=== PATIENT | male | born 1945 | race African-American/Black ===

== ENCOUNTER 2018-01-12 16:00 | Inpatient (IN) | payer MEDICARE, OTHER ==
[~2018-01-12] VITALS: Ht 175.3 cm; Wt 58.9 kg
[2018-01-12] MEDS ORDERED: ALBUTEROL SULF 2.5 MG/0.5ML(0.5%) NEB SOLN NEB ONE (16:30)
[2018-01-12] MEDS ORDERED: IPRATROPIUM BROM 0.5 MG/2.5ML INH SOL NEB ONE (16:30)
[2018-01-12] MEDS ORDERED: ETOMIDATE (2MG/ML) 20ML VIAL IV ONE (17:15)
[2018-01-12] MEDS ORDERED: SUCCINYLCHOLINE CHLORIDE 20 MG/ML 10ML VIAL IV ONE (17:15)
[2018-01-12] MEDS ORDERED: LORazepam 2MG/ML-1ML VIAL IV ONE (17:30)
[2018-01-12 18:30] LABS: Basophils # (auto) 0 uL; Eosinophils # (auto) 0 uL; Hemoglobin 8.9 g/dL (13.5-17.5); Neutrophils # (auto) 8.1 uL; Neutrophils % (auto) 88.6 % (37.0-80.0); White Blood Cell 9.1 10^3/uL (4.4-10.8)
[2018-01-12 18:31] LABS: Basophils % (auto) 0.3 % (0.0-2.0); Hematocrit 26.8 % (41.0-53.0); Lymphocytes # (auto) 0.4 uL; Lymphocytes % (auto) 4.1 % (10.0-50.0); Mean Corpuscular Hemoglobin 27.1 pg (28.0-32.0); Mean Corpuscular Hgb Conc. 33.2 g/dL (32.0-36.0); Mean Corpuscular Volume 81.7 fL (80.0-100.0); Monocytes # (auto) 0.6 uL; Platelet Count (auto) 262 10^3/uL (140-450); Red Blood Cells 3.28 10^6/uL (4.5-5.90); Red Cell Distribution Width 14.4 % (11.8-14.3)
[2018-01-12 18:37] LABS: Albumin 2.6 g/dL (3.4-5.0); BUN/Creatinine Ratio 15.4; Calcium 8.1 mg/dL (8.5-10.1); Potassium 4.3 mmol/L (3.5-5.1)
[2018-01-12 18:42] LABS: Bilirubin, Total 0.4 mg/dL (0.2-1.0); Total Protein 6.5 g/dL (6.4-8.2)
[2018-01-12 18:58] LABS: INR 1.05 (0.9-1.15); Partial Thromboplastin Time 28.9 sec (22.64-33.71); Prothrombin Time 11.5 sec (9.37-12.3)
[2018-01-12] MEDS ORDERED: cloNIDine HCL 0.1 MG TAB PO PRN (19:45)
[2018-01-12] MEDS ORDERED: hydrOXYzine 25 MG TAB or CAP PO PRN (19:45)
[2018-01-12] MEDS ORDERED: VANCOMYCIN PER PHARMACY 0 MG IV SCH (19:45)
[2018-01-12] MEDS ORDERED: HYDROcodone-ACET 5/325MG TAB PO PRN (19:45)
[2018-01-12] MEDS ORDERED: FUROSEMIDE 40 MG/4 ML VIAL IV ONE (19:45)
[2018-01-12] MEDS ORDERED: cefTRIAXone 1GM/10ml IVPUSH 10 ML IV ONE (19:45)
[2018-01-12] MEDS ORDERED: DEXTROSE (50%) 50ML SYRG IV PRN (20:00)
[2018-01-12] MEDS ORDERED: ALUM & MAG HYDROX-SIMETH LIQ(MAALOX) 30 ML PO ONE (20:00)
[2018-01-12] MEDS ORDERED: NITROGLYCERIN 0.4 MG SL TAB SL PRN ×2 (20:00)
[2018-01-12] MEDS ORDERED: ACETAMINOPHEN 325 MG TAB PO PRN (20:00)
[2018-01-12] MEDS ORDERED: MORPHINE SULFATE 4 MG/ML SYR/VIAL IV PRN ×2 (20:00)
[2018-01-12] MEDS ORDERED: ZOLPIDEM TARTRATE 5 MG TAB PO PRN (20:00)
[2018-01-12] MEDS ORDERED: LORazepam 0.5 MG TAB PO PRN (20:00)
[2018-01-12] MEDS ORDERED: ONDANSETRON HCL 4 MG/2 ML VIAL IV PRN (20:00)
[2018-01-12] MEDS: ENOXAPARIN SOD 80 MG/0.8ML SYRINGE SC SCH (20:20)
[2018-01-12] MEDS ORDERED: VANCOMYCIN 1GM/250ML 250 ML IV SCH (21:00)
[2018-01-12] MEDS: ACCU-CHEK COMFORT CURVE STRIP VI SCH (22:00)
[2018-01-12] MEDS: cloNIDine HCL 0.1 MG TAB PO SCH (22:00)
[2018-01-12] MEDS: InsuLIN REG 1unit/0.01ml Soln (100units/ml) SC SCH (22:00)
[2018-01-12] MEDS: CARVEDILOL 3.125 MG TAB PO SCH (22:00)
[2018-01-12] MEDS: ATORVASTATIN 20 MG TAB PO SCH (22:16)
[2018-01-12] MEDS: SODIUM CHLOR 0.9% PF (SALINE LOCK) 10ML VIAL IV SCH (22:16)
[2018-01-12] MEDS: ENALAPRIL MALEATE 10 MG TAB PO SCH (22:16)
[2018-01-12] MEDS: POTASSIUM CHL 10 Meq TABLET PO SCH (22:16)
[2018-01-12] MEDS: PARoxetine 20 MG TAB PO SCH (22:16)
[2018-01-12] MEDS: GABAPENTIN 300 MG CAP PO SCH (22:16)
[2018-01-12] MEDS: QUEtiapine FUMARATE 100 MG TAB PO SCH (22:16)
[2018-01-13] VITALS (9 sets, daily range): BP systolic 103–135; BP diastolic 63–89
[2018-01-13 05:30] LABS: Basophils # (auto) 0 uL; Eosinophils # (auto) 0 uL; Eosinophils % (auto) 0.1 % (0.0-7.0); Hemoglobin 8.4 g/dL (13.5-17.5); Lymphocytes # (auto) 0.7 uL; Mean Corpuscular Hemoglobin 26.8 pg (28.0-32.0)
[2018-01-13 05:31] LABS: Basophils % (auto) 0.2 % (0.0-2.0); Hematocrit 25.5 % (41.0-53.0); Lymphocytes % (auto) 6.3 % (10.0-50.0); Mean Corpuscular Volume 81.2 fL (80.0-100.0); Monocytes # (auto) 0.8 uL; Monocytes % (auto) 6.8 % (0.0-12.0); Neutrophils # (auto) 9.6 uL; Neutrophils % (auto) 86.6 % (37.0-80.0); Nucleated Red Blood Cells % 0.1 %; Platelet Count (auto) 241 10^3/uL (140-450); Red Blood Cells 3.14 10^6/uL (4.5-5.90); Red Cell Distribution Width 14.2 % (11.8-14.3); White Blood Cell 11.1 10^3/uL (4.4-10.8)
[2018-01-13 05:49] LABS: Albumin 2.4 g/dL (3.4-5.0); BUN/Creatinine Ratio 14.7; Bilirubin, Total 0.3 mg/dL (0.2-1.0); Calcium 7.7 mg/dL (8.5-10.1); Magnesium 1.8 mg/dL (1.6-2.6); Total Protein 6.2 g/dL (6.4-8.2)
[2018-01-13] MEDS ORDERED: ACETAMINOPHEN 500 MG TAB PO ONE (06:00)
[2018-01-13] MEDS: SODIUM CHLOR 0.9% PF (SALINE LOCK) 10ML VIAL IV SCH ×3 (06:12→22:02)
[2018-01-13] MEDS: FUROSEMIDE 40 MG/4 ML VIAL IV SCH ×2 (06:12→18:25)
[2018-01-13] MEDS: IPRATROPIUM BROM 0.5 MG/2.5ML INH SOL NEB SCH ×3 (06:15→18:20)
[2018-01-13] MEDS: ALBUTEROL SULF 2.5 MG/0.5ML(0.5%) NEB SOLN NEB SCH ×3 (06:15→18:20)
[2018-01-13] MEDS: ACCU-CHEK COMFORT CURVE STRIP VI SCH ×4 (06:30→22:07)
[2018-01-13] MEDS: INSULIN NPH Isophane (HUMAN) 1unit/0.01ml Susp(100units/ml) SC SCH ×2 (06:31→18:25)
[2018-01-13] MEDS: InsuLIN REG 1unit/0.01ml Soln (100units/ml) SC SCH ×4 (06:32→22:00)
[2018-01-13] MEDS: Boost Glucose Control 8 Ounces PO SCH ×3 (08:52→18:23)
[2018-01-13] MEDS: ENOXAPARIN SOD 80 MG/0.8ML SYRINGE SC SCH ×2 (09:05→22:02)
[2018-01-13] MEDS: cefTRIAXone 1GM/10ml IVPUSH 10 ML IV SCH (09:05)
[2018-01-13] MEDS ORDERED: amLODIPine BESYLATE 5 MG TAB PO SCH (10:00)
[2018-01-13] MEDS ORDERED: AZITHROMYCIN 500MG/ 250ML 250 ML IV ONE (11:15)
[2018-01-13] MEDS: cloNIDine HCL 0.1 MG TAB PO SCH ×2 (12:00→22:00)
[2018-01-13] MEDS: CLOPIDOGREL BISULFATE 75 MG TAB PO SCH (12:00)
[2018-01-13] MEDS: ASPirin 81 mg TAB PO SCH (12:00)
[2018-01-13] MEDS: POTASSIUM CHL 10 Meq TABLET PO SCH ×2 (12:00→22:07)
[2018-01-13] MEDS: GABAPENTIN 300 MG CAP PO SCH ×2 (12:00→22:07)
[2018-01-13] MEDS: DOCUSATE SOD 100 MG CAP PO SCH (12:00)
[2018-01-13] MEDS: CARVEDILOL 3.125 MG TAB PO SCH ×2 (12:00→22:06)
[2018-01-13] MEDS: PANTOPRAZOLE 40 MG TAB PO SCH (12:00)
[2018-01-13] MEDS: ENALAPRIL MALEATE 10 MG TAB PO SCH ×2 (12:00→22:00)
[2018-01-13 12:37] LABS: Urine Bacteria NONE SEEN /hpf (None Seen); Urine Blood Negative /uL (Negative); Urine Specific Gravity 1.008 (1.001-1.035); Urine WBC <1 /hpf (0 - 3)
[2018-01-13] MEDS ORDERED: IPRATROPIUM BROM 0.5 MG/2.5ML INH SOL NEB PRN (18:15)
[2018-01-13] MEDS ORDERED: ALBUTEROL SULF 2.5 MG/0.5ML(0.5%) NEB SOLN NEB PRN (18:15)
[2018-01-13] MEDS: ATORVASTATIN 20 MG TAB PO SCH (22:07)
[2018-01-13] MEDS: PARoxetine 20 MG TAB PO SCH (22:08)
[2018-01-13] MEDS: QUEtiapine FUMARATE 100 MG TAB PO SCH (22:08)
[2018-01-14] VITALS (9 sets, daily range): BP systolic 85–126; BP diastolic 56–73
[2018-01-14] MEDS: IPRATROPIUM BROM 0.5 MG/2.5ML INH SOL NEB SCH ×4 (00:13→17:59)
[2018-01-14] MEDS: ALBUTEROL SULF 2.5 MG/0.5ML(0.5%) NEB SOLN NEB SCH ×4 (00:13→17:59)
[2018-01-14 05:47] LABS: Eosinophils # (auto) 0 uL; Hemoglobin 8.5 g/dL (13.5-17.5)
[2018-01-14 05:50] LABS: Basophils # (auto) 0 uL; Lymphocytes # (auto) 0.7 uL; Lymphocytes % (auto) 4.7 % (10.0-50.0); Mean Corpuscular Hemoglobin 26.8 pg (28.0-32.0); Mean Corpuscular Hgb Conc. 32.7 g/dL (32.0-36.0); Mean Corpuscular Volume 82.1 fL (80.0-100.0); Monocytes % (auto) 6.7 % (0.0-12.0); Neutrophils # (auto) 12.6 uL; Neutrophils % (auto) 88.6 % (37.0-80.0); Platelet Count (auto) 231 10^3/uL (140-450); Red Blood Cells 3.17 10^6/uL (4.5-5.90); Red Cell Distribution Width 14.1 % (11.8-14.3); White Blood Cell 14.2 10^3/uL (4.4-10.8)
[2018-01-14 06:05] LABS: BUN/Creatinine Ratio 21.3; Calcium 8.1 mg/dL (8.5-10.1); Potassium 4.3 mmol/L (3.5-5.1)
[2018-01-14] MEDS: ACCU-CHEK COMFORT CURVE STRIP VI SCH ×4 (06:27→22:20)
[2018-01-14] MEDS: InsuLIN REG 1unit/0.01ml Soln (100units/ml) SC SCH ×4 (06:27→22:20)
[2018-01-14] MEDS: INSULIN NPH Isophane (HUMAN) 1unit/0.01ml Susp(100units/ml) SC SCH ×2 (06:27→18:00)
[2018-01-14] MEDS: SODIUM CHLOR 0.9% PF (SALINE LOCK) 10ML VIAL IV SCH ×3 (06:28→22:20)
[2018-01-14] MEDS: FUROSEMIDE 40 MG/4 ML VIAL IV SCH ×2 (06:47→18:11)
[2018-01-14] MEDS ORDERED: BUMETANIDE (0.25 MG/ML) INJ 10ML IV ONE (07:45)
[2018-01-14] MEDS: ENOXAPARIN SOD 80 MG/0.8ML SYRINGE SC SCH (08:31)
[2018-01-14] MEDS: Boost Glucose Control 8 Ounces PO SCH ×3 (08:31→18:12)
[2018-01-14] MEDS: GABAPENTIN 300 MG CAP PO SCH ×2 (09:55→22:20)
[2018-01-14] MEDS: ASPirin 81 mg TAB PO SCH (09:55)
[2018-01-14] MEDS: DOCUSATE SOD 100 MG CAP PO SCH (09:55)
[2018-01-14] MEDS: POTASSIUM CHL 10 Meq TABLET PO SCH ×2 (09:55→22:20)
[2018-01-14] MEDS: CLOPIDOGREL BISULFATE 75 MG TAB PO SCH (09:55)
[2018-01-14] MEDS: PANTOPRAZOLE 40 MG TAB PO SCH (09:55)
[2018-01-14] MEDS: AZITHROMYCIN 500MG/ 250ML 250 ML IV SCH (09:56)
[2018-01-14] MEDS: cefTRIAXone 1GM/10ml IVPUSH 10 ML IV SCH (09:56)
[2018-01-14] MEDS: CARVEDILOL 3.125 MG TAB PO SCH ×2 (10:00→22:00)
[2018-01-14] MEDS: cloNIDine HCL 0.1 MG TAB PO SCH ×2 (10:00→22:00)
[2018-01-14] MEDS: HEPARIN SODIUM (PORCINE) 5000 UNITS/ML 1ML VIAL SC SCH ×2 (14:00→22:20)
[2018-01-14] MEDS: methylPREDNISolone SOD SUCC 125 MG/2 ML VL IV SCH ×2 (14:25→22:20)
[2018-01-14] MEDS: PARoxetine 20 MG TAB PO SCH (22:20)
[2018-01-14] MEDS: ATORVASTATIN 20 MG TAB PO SCH (22:20)
[2018-01-14] MEDS: QUEtiapine FUMARATE 100 MG TAB PO SCH (22:20)
[2018-01-15] VITALS (7 sets, daily range): BP systolic 100–135; BP diastolic 61–76
[2018-01-15] MEDS: ALBUTEROL SULF 2.5 MG/0.5ML(0.5%) NEB SOLN NEB SCH ×4 (00:03→18:42)
[2018-01-15] MEDS: IPRATROPIUM BROM 0.5 MG/2.5ML INH SOL NEB SCH ×4 (00:03→18:43)
[2018-01-15 06:00] LABS: Basophils # (auto) 0 uL; Basophils % (auto) 0.2 % (0.0-2.0); Eosinophils # (auto) 0 uL; Lymphocytes # (auto) 0.2 uL; Mean Corpuscular Hemoglobin 26.7 pg (28.0-32.0); Monocytes # (auto) 0.6 uL; Neutrophils # (auto) 10.8 uL; White Blood Cell 11.6 10^3/uL (4.4-10.8)
[2018-01-15] MEDS: FUROSEMIDE 40 MG/4 ML VIAL IV SCH ×2 (06:00→17:55)
[2018-01-15] MEDS ORDERED: BUMETANIDE (0.25 MG/ML) INJ 10ML IV ONE (06:00)
[2018-01-15 06:02] LABS: BUN/Creatinine Ratio 24.6; Calcium 7.4 mg/dL (8.5-10.1); Potassium 4.3 mmol/L (3.5-5.1)
[2018-01-15 06:03] LABS: Hematocrit 24.3 % (41.0-53.0); Lymphocytes % (auto) 1.7 % (10.0-50.0); Mean Corpuscular Volume 80.9 fL (80.0-100.0); Monocytes % (auto) 5.1 % (0.0-12.0); Platelet Count (auto) 233 10^3/uL (140-450); Red Blood Cells 3.01 10^6/uL (4.5-5.90); Red Cell Distribution Width 14.1 % (11.8-14.3)
[2018-01-15] MEDS: methylPREDNISolone SOD SUCC 125 MG/2 ML VL IV SCH (06:05)
[2018-01-15] MEDS: SODIUM CHLOR 0.9% PF (SALINE LOCK) 10ML VIAL IV SCH ×3 (06:05→22:02)
[2018-01-15] MEDS: INSULIN NPH Isophane (HUMAN) 1unit/0.01ml Susp(100units/ml) SC SCH ×2 (07:00→18:14)
[2018-01-15] MEDS: InsuLIN REG 1unit/0.01ml Soln (100units/ml) SC SCH ×4 (07:00→22:22)
[2018-01-15] MEDS: HEPARIN SODIUM (PORCINE) 5000 UNITS/ML 1ML VIAL SC SCH ×3 (07:00→22:04)
[2018-01-15] MEDS: ACCU-CHEK COMFORT CURVE STRIP VI SCH ×4 (07:00→22:04)
[2018-01-15] MEDS: Boost Glucose Control 8 Ounces PO SCH ×3 (08:00→18:00)
[2018-01-15] MEDS: cefTRIAXone 1GM/10ml IVPUSH 10 ML IV SCH (09:46)
[2018-01-15] MEDS: CLOPIDOGREL BISULFATE 75 MG TAB PO SCH (09:48)
[2018-01-15] MEDS: ASPirin 81 mg TAB PO SCH (09:48)
[2018-01-15] MEDS: DOCUSATE SOD 100 MG CAP PO SCH (09:48)
[2018-01-15] MEDS: GABAPENTIN 300 MG CAP PO SCH ×2 (09:48→22:03)
[2018-01-15] MEDS: POTASSIUM CHL 10 Meq TABLET PO SCH ×2 (09:48→22:03)
[2018-01-15] MEDS: PANTOPRAZOLE 40 MG TAB PO SCH (09:48)
[2018-01-15] MEDS: AZITHROMYCIN 500MG/ 250ML 250 ML IV SCH (09:53)
[2018-01-15] MEDS: CARVEDILOL 3.125 MG TAB PO SCH ×2 (09:54→22:03)
[2018-01-15] MEDS: cloNIDine HCL 0.1 MG TAB PO SCH ×2 (09:54→22:02)
[2018-01-15] MEDS ORDERED: HEPARIN SODIUM (PORCINE) 5000 UNITS/ML 1ML VIAL ONE ×2 (14:11)
[2018-01-15] MEDS ORDERED: methylPREDNISolone SOD SUCC 125 MG/2 ML VL IV SCH (22:00)
[2018-01-15] MEDS: methylPREDNISolone SOD SUCC 40 MG/ML VL IV SCH (22:02)
[2018-01-15] MEDS: ATORVASTATIN 20 MG TAB PO SCH (22:03)
[2018-01-15] MEDS: QUEtiapine FUMARATE 100 MG TAB PO SCH (22:03)
[2018-01-15] MEDS: PARoxetine 20 MG TAB PO SCH (22:03)
[2018-01-16] VITALS (14 sets, daily range): BP systolic 106–136; BP diastolic 57–79
[2018-01-16] MEDS: IPRATROPIUM BROM 0.5 MG/2.5ML INH SOL NEB SCH ×4 (00:36→19:55)
[2018-01-16] MEDS: ALBUTEROL SULF 2.5 MG/0.5ML(0.5%) NEB SOLN NEB SCH ×4 (00:36→19:55)
[2018-01-16 05:20] LABS: Basophils # (auto) 0 uL; Eosinophils # (auto) 0 uL; Hematocrit 23.2 % (41.0-53.0); Lymphocytes # (auto) 0.2 uL; Platelet Count (auto) 231 10^3/uL (140-450); Red Blood Cells 2.88 10^6/uL (4.5-5.90)
[2018-01-16 05:22] LABS: Basophils % (auto) 0.2 % (0.0-2.0); Hemoglobin 7.9 g/dL (13.5-17.5); Mean Corpuscular Hemoglobin 27.3 pg (28.0-32.0); Mean Corpuscular Volume 80.4 fL (80.0-100.0); Monocytes # (auto) 0.5 uL; Monocytes % (auto) 4.8 % (0.0-12.0); Neutrophils # (auto) 9.9 uL; Nucleated Red Blood Cells % 0.1 %; Red Cell Distribution Width 14.1 % (11.8-14.3); White Blood Cell 10.6 10^3/uL (4.4-10.8)
[2018-01-16 05:36] LABS: BUN/Creatinine Ratio 30.5; Calcium 7.1 mg/dL (8.5-10.1); Potassium 3.6 mmol/L (3.5-5.1)
[2018-01-16] MEDS: FUROSEMIDE 40 MG/4 ML VIAL IV SCH (06:00)
[2018-01-16] MEDS: SODIUM CHLOR 0.9% PF (SALINE LOCK) 10ML VIAL IV SCH ×3 (06:27→21:41)
[2018-01-16] MEDS: HEPARIN SODIUM (PORCINE) 5000 UNITS/ML 1ML VIAL SC SCH ×3 (06:27→21:50)
[2018-01-16] MEDS: ACCU-CHEK COMFORT CURVE STRIP VI SCH ×4 (06:40→21:42)
[2018-01-16] MEDS: InsuLIN REG 1unit/0.01ml Soln (100units/ml) SC SCH ×4 (06:40→21:43)
[2018-01-16] MEDS: INSULIN NPH Isophane (HUMAN) 1unit/0.01ml Susp(100units/ml) SC SCH ×2 (06:42→18:27)
[2018-01-16] MEDS: Boost Glucose Control 8 Ounces PO SCH ×3 (08:00→18:21)
[2018-01-16] MEDS: methylPREDNISolone SOD SUCC 40 MG/ML VL IV SCH ×2 (10:56→21:41)
[2018-01-16] MEDS: cefTRIAXone 1GM/10ml IVPUSH 10 ML IV SCH (10:59)
[2018-01-16] MEDS: cloNIDine HCL 0.1 MG TAB PO SCH ×2 (10:59→21:33)
[2018-01-16] MEDS: ASPirin 81 mg TAB PO SCH (10:59)
[2018-01-16] MEDS: DOCUSATE SOD 100 MG CAP PO SCH (11:08)
[2018-01-16] MEDS: GABAPENTIN 300 MG CAP PO SCH ×2 (11:08→21:42)
[2018-01-16] MEDS: AZITHROMYCIN 500MG/ 250ML 250 ML IV SCH (11:08)
[2018-01-16] MEDS: CARVEDILOL 3.125 MG TAB PO SCH ×2 (11:09→21:33)
[2018-01-16] MEDS: CLOPIDOGREL BISULFATE 75 MG TAB PO SCH (11:10)
[2018-01-16] MEDS: PANTOPRAZOLE 40 MG TAB PO SCH (11:10)
[2018-01-16] MEDS: POTASSIUM CHL 10 Meq TABLET PO SCH ×2 (11:38→21:42)
[2018-01-16] MEDS ORDERED: FUROSEMIDE 40 MG/4 ML VIAL IV ONE (16:00)
[2018-01-16 16:35] LABS: % Iron Saturation 10.3 % (20-55)
[2018-01-16] MEDS: ALBUMIN 25% 50 ML IV SCH (21:33)
[2018-01-16] MEDS: PARoxetine 20 MG TAB PO SCH (21:42)
[2018-01-16] MEDS: ATORVASTATIN 20 MG TAB PO SCH (21:42)
[2018-01-16] MEDS: QUEtiapine FUMARATE 100 MG TAB PO SCH (21:42)
[2018-01-17] VITALS (14 sets, daily range): BP systolic 134–151; BP diastolic 70–90
[2018-01-17] MEDS: IPRATROPIUM BROM 0.5 MG/2.5ML INH SOL NEB SCH ×4 (00:39→18:47)
[2018-01-17] MEDS: ALBUTEROL SULF 2.5 MG/0.5ML(0.5%) NEB SOLN NEB SCH ×4 (00:39→18:47)
[2018-01-17] MEDS: ALBUMIN 25% 50 ML IV SCH ×2 (00:55→09:03)
[2018-01-17 05:25] LABS: Basophils # (auto) 0 uL; Basophils % (auto) 0.2 % (0.0-2.0); Eosinophils # (auto) 0 uL; Hematocrit 26.5 % (41.0-53.0); Hemoglobin 8.9 g/dL (13.5-17.5); Lymphocytes # (auto) 0.2 uL; Mean Corpuscular Hemoglobin 27.4 pg (28.0-32.0); Mean Corpuscular Hgb Conc. 33.5 g/dL (32.0-36.0); Mean Corpuscular Volume 81.9 fL (80.0-100.0); Monocytes # (auto) 0.4 uL; Monocytes % (auto) 4.7 % (0.0-12.0); Neutrophils # (auto) 7.4 uL; Neutrophils % (auto) 93.1 % (37.0-80.0); Nucleated Red Blood Cells % 0.2 %; Platelet Count (auto) 235 10^3/uL (140-450); Red Blood Cells 3.24 10^6/uL (4.5-5.90)
[2018-01-17] MEDS: ACCU-CHEK COMFORT CURVE STRIP VI SCH ×4 (05:45→22:17)
[2018-01-17] MEDS: SODIUM CHLOR 0.9% PF (SALINE LOCK) 10ML VIAL IV SCH ×3 (05:45→22:17)
[2018-01-17] MEDS: INSULIN NPH Isophane (HUMAN) 1unit/0.01ml Susp(100units/ml) SC SCH (05:45)
[2018-01-17] MEDS: InsuLIN REG 1unit/0.01ml Soln (100units/ml) SC SCH ×4 (05:45→22:15)
[2018-01-17] MEDS: HEPARIN SODIUM (PORCINE) 5000 UNITS/ML 1ML VIAL SC SCH ×3 (05:46→21:12)
[2018-01-17 05:47] LABS: Albumin 2.3 g/dL (3.4-5.0); BUN/Creatinine Ratio 35.8; Bilirubin, Total 0.2 mg/dL (0.2-1.0); Total Protein 6.7 g/dL (6.4-8.2)
[2018-01-17] MEDS ORDERED: FUROSEMIDE 40 MG/4 ML VIAL IV SCH (06:00)
[2018-01-17] MEDS: Boost Glucose Control 8 Ounces PO SCH ×3 (08:00→18:00)
[2018-01-17] MEDS: cefTRIAXone 1GM/10ml IVPUSH 10 ML IV SCH (09:00)
[2018-01-17] MEDS: DOCUSATE SOD 100 MG CAP PO SCH (11:06)
[2018-01-17] MEDS: CLOPIDOGREL BISULFATE 75 MG TAB PO SCH (11:06)
[2018-01-17] MEDS: cloNIDine HCL 0.1 MG TAB PO SCH ×2 (11:09→21:06)
[2018-01-17] MEDS: GABAPENTIN 300 MG CAP PO SCH ×2 (11:09→21:05)
[2018-01-17] MEDS: POTASSIUM CHL 10 Meq TABLET PO SCH ×2 (11:10→21:05)
[2018-01-17] MEDS: PANTOPRAZOLE 40 MG TAB PO SCH (11:11)
[2018-01-17] MEDS: CARVEDILOL 3.125 MG TAB PO SCH ×2 (11:11→21:08)
[2018-01-17] MEDS: ASPirin 81 mg TAB PO SCH (11:12)
[2018-01-17] MEDS: methylPREDNISolone SOD SUCC 40 MG/ML VL IV SCH ×2 (11:12→21:13)
[2018-01-17] MEDS: AZITHROMYCIN 500MG/ 250ML 250 ML IV SCH (11:13)
[2018-01-17] MEDS ORDERED: InsuLIN REG 1unit/0.01ml Soln (100units/ml) SC ONE (12:45)
[2018-01-17] MEDS ORDERED: DEXTROSE (50%) 50ML SYRG IV PRN (12:45)
[2018-01-17] MEDS: ALBUMIN 25% 100 ML IV SCH ×2 (14:36→15:12)
[2018-01-17] MEDS ORDERED: ALBUMIN 25% 100 ML IV SCH (17:00)
[2018-01-17] MEDS: ATORVASTATIN 20 MG TAB PO SCH (21:08)
[2018-01-17] MEDS: QUEtiapine FUMARATE 100 MG TAB PO SCH (21:11)
[2018-01-17] MEDS: PARoxetine 20 MG TAB PO SCH (21:11)
[2018-01-17] MEDS: INSULIN LANTUS (GLARGINE) 1 /0.01ml (100units/ml) SC SCH (22:16)
[2018-01-18] VITALS (11 sets, daily range): BP systolic 139–162; BP diastolic 76–92
[2018-01-18] MEDS: IPRATROPIUM BROM 0.5 MG/2.5ML INH SOL NEB SCH ×4 (00:49→19:16)
[2018-01-18] MEDS: ALBUTEROL SULF 2.5 MG/0.5ML(0.5%) NEB SOLN NEB SCH ×4 (00:49→19:16)
[2018-01-18] MEDS: InsuLIN REG 1unit/0.01ml Soln (100units/ml) SC SCH ×4 (05:47→21:19)
[2018-01-18] MEDS: HEPARIN SODIUM (PORCINE) 5000 UNITS/ML 1ML VIAL SC SCH ×3 (05:57→21:19)
[2018-01-18 05:59] LABS: Basophils # (auto) 0 uL; Basophils % (auto) 0.1 % (0.0-2.0); Eosinophils # (auto) 0 uL; Hematocrit 27.7 % (41.0-53.0); Hemoglobin 9.3 g/dL (13.5-17.5); Lymphocytes # (auto) 0.1 uL; Lymphocytes % (auto) 1.8 % (10.0-50.0); Mean Corpuscular Hemoglobin 27.2 pg (28.0-32.0); Mean Corpuscular Hgb Conc. 33.4 g/dL (32.0-36.0); Mean Corpuscular Volume 81.5 fL (80.0-100.0); Monocytes # (auto) 0.5 uL; Monocytes % (auto) 5.6 % (0.0-12.0); Neutrophils # (auto) 7.7 uL; Neutrophils % (auto) 92.5 % (37.0-80.0); Nucleated Red Blood Cells % 0.2 %; Platelet Count (auto) 283 10^3/uL (140-450); Red Blood Cells 3.41 10^6/uL (4.5-5.90); Red Cell Distribution Width 14.7 % (11.8-14.3); White Blood Cell 8.4 10^3/uL (4.4-10.8)
[2018-01-18] MEDS ORDERED: FUROSEMIDE 40 MG/4 ML VIAL IV SCH ×2 (06:00→10:00)
[2018-01-18] MEDS: SODIUM CHLOR 0.9% PF (SALINE LOCK) 10ML VIAL IV SCH ×3 (06:00→21:15)
[2018-01-18 06:13] LABS: INR 1.16 (0.9-1.15); Partial Thromboplastin Time 29.5 sec (22.64-33.71); Prothrombin Time 12.7 sec (9.37-12.3)
[2018-01-18 06:24] LABS: Albumin 2.8 g/dL (3.4-5.0); Calcium 7.6 mg/dL (8.5-10.1); Magnesium 2.9 mg/dL (1.6-2.6); Potassium 4.6 mmol/L (3.5-5.1)
[2018-01-18 06:27] LABS: BUN/Creatinine Ratio 43.3; Bilirubin, Total 0.3 mg/dL (0.2-1.0); Total Protein 6.9 g/dL (6.4-8.2)
[2018-01-18] MEDS: ACCU-CHEK COMFORT CURVE STRIP VI SCH ×4 (07:00→21:18)
[2018-01-18] MEDS: Boost Glucose Control 8 Ounces PO SCH ×3 (08:00→18:00)
[2018-01-18] MEDS: methylPREDNISolone SOD SUCC 40 MG/ML VL IV SCH ×2 (09:49→21:15)
[2018-01-18] MEDS: AZITHROMYCIN 500MG/ 250ML 250 ML IV SCH (09:49)
[2018-01-18] MEDS: cefTRIAXone 1GM/10ml IVPUSH 10 ML IV SCH (09:49)
[2018-01-18] MEDS: DOCUSATE SOD 100 MG CAP PO SCH (09:50)
[2018-01-18] MEDS: GABAPENTIN 300 MG CAP PO SCH ×2 (09:50→21:16)
[2018-01-18] MEDS: CARVEDILOL 3.125 MG TAB PO SCH ×2 (09:51→21:16)
[2018-01-18] MEDS: PANTOPRAZOLE 40 MG TAB PO SCH (09:51)
[2018-01-18] MEDS: CLOPIDOGREL BISULFATE 75 MG TAB PO SCH (09:51)
[2018-01-18] MEDS: ASPirin 81 mg TAB PO SCH (09:51)
[2018-01-18] MEDS: POTASSIUM CHL 10 Meq TABLET PO SCH ×2 (09:52→21:16)
[2018-01-18] MEDS: cloNIDine HCL 0.1 MG TAB PO SCH ×2 (09:52→21:17)
[2018-01-18] MEDS ORDERED: LIDOCAINE 2% (LOCAL ANESTH.) PF 5ml SDV ONE (10:52)
[2018-01-18] MEDS: PARoxetine 20 MG TAB PO SCH (21:15)
[2018-01-18] MEDS: ATORVASTATIN 20 MG TAB PO SCH (21:15)
[2018-01-18] MEDS: QUEtiapine FUMARATE 100 MG TAB PO SCH (21:18)
[2018-01-18] MEDS: INSULIN LANTUS (GLARGINE) 1 /0.01ml (100units/ml) SC SCH (21:18)
[2018-01-19] VITALS (7 sets, daily range): BP systolic 141–156; BP diastolic 78–96
[2018-01-19] MEDS: IPRATROPIUM BROM 0.5 MG/2.5ML INH SOL NEB SCH ×4 (00:55→20:09)
[2018-01-19] MEDS: ALBUTEROL SULF 2.5 MG/0.5ML(0.5%) NEB SOLN NEB SCH ×4 (00:55→20:09)
[2018-01-19 06:15] LABS: Potassium 5.2 mmol/L (3.5-5.1)
[2018-01-19 06:22] LABS: Calcium 7.8 mg/dL (8.5-10.1)
[2018-01-19] MEDS: ACCU-CHEK COMFORT CURVE STRIP VI SCH ×4 (06:39→22:12)
[2018-01-19] MEDS: SODIUM CHLOR 0.9% PF (SALINE LOCK) 10ML VIAL IV SCH ×3 (06:40→22:13)
[2018-01-19] MEDS: InsuLIN REG 1unit/0.01ml Soln (100units/ml) SC SCH ×4 (06:42→22:01)
[2018-01-19] MEDS: HEPARIN SODIUM (PORCINE) 5000 UNITS/ML 1ML VIAL SC SCH ×3 (06:45→21:56)
[2018-01-19] MEDS: Boost Glucose Control 8 Ounces PO SCH ×3 (09:33→18:12)
[2018-01-19] MEDS: POTASSIUM CHL 10 Meq TABLET PO SCH ×2 (10:00→22:00)
[2018-01-19] MEDS: cefTRIAXone 1GM/10ml IVPUSH 10 ML IV SCH (10:25)
[2018-01-19] MEDS: AZITHROMYCIN 500MG/ 250ML 250 ML IV SCH (10:25)
[2018-01-19] MEDS: methylPREDNISolone SOD SUCC 40 MG/ML VL IV SCH ×2 (10:25→21:52)
[2018-01-19] MEDS: GABAPENTIN 300 MG CAP PO SCH ×2 (10:26→21:54)
[2018-01-19] MEDS: ASPirin 81 mg TAB PO SCH (10:26)
[2018-01-19] MEDS: DOCUSATE SOD 100 MG CAP PO SCH (10:26)
[2018-01-19] MEDS: CARVEDILOL 3.125 MG TAB PO SCH ×2 (10:26→21:53)
[2018-01-19] MEDS: CLOPIDOGREL BISULFATE 75 MG TAB PO SCH (10:26)
[2018-01-19] MEDS: cloNIDine HCL 0.1 MG TAB PO SCH ×2 (10:27→21:54)
[2018-01-19] MEDS: PANTOPRAZOLE 40 MG TAB PO SCH (10:27)
[2018-01-19] MEDS ORDERED: FUROSEMIDE 40 MG/4 ML VIAL IV ONE (12:30)
[2018-01-19] MEDS: ATORVASTATIN 20 MG TAB PO SCH (21:54)
[2018-01-19] MEDS: QUEtiapine FUMARATE 100 MG TAB PO SCH (22:00)
[2018-01-19] MEDS: PARoxetine 20 MG TAB PO SCH (22:01)
[2018-01-19] MEDS: INSULIN LANTUS (GLARGINE) 1 /0.01ml (100units/ml) SC SCH (22:02)
[2018-01-20] VITALS (7 sets, daily range): BP systolic 130–172; BP diastolic 81–96
[2018-01-20] MEDS: ALBUTEROL SULF 2.5 MG/0.5ML(0.5%) NEB SOLN NEB SCH ×4 (00:53→18:57)
[2018-01-20] MEDS: IPRATROPIUM BROM 0.5 MG/2.5ML INH SOL NEB SCH ×4 (00:53→18:57)
[2018-01-20 06:31] LABS: Calcium 7.7 mg/dL (8.5-10.1)
[2018-01-20 06:38] LABS: BUN/Creatinine Ratio 38.5
[2018-01-20] MEDS: SODIUM CHLOR 0.9% PF (SALINE LOCK) 10ML VIAL IV SCH ×3 (06:40→21:44)
[2018-01-20] MEDS: HEPARIN SODIUM (PORCINE) 5000 UNITS/ML 1ML VIAL SC SCH ×3 (06:41→21:32)
[2018-01-20] MEDS: ACCU-CHEK COMFORT CURVE STRIP VI SCH ×4 (06:42→21:39)
[2018-01-20] MEDS: InsuLIN REG 1unit/0.01ml Soln (100units/ml) SC SCH ×4 (06:42→21:39)
[2018-01-20] MEDS ORDERED: SODIUM POLYSTYRENE SULF 15GM/60ML SUSP PO ONE (07:45)
[2018-01-20] MEDS ORDERED: SODIUM POLYSTYRENE SULF 15GM/60ML SUSP ONE ×2 (07:55→08:02)
[2018-01-20] MEDS: Boost Glucose Control 8 Ounces PO SCH ×3 (09:16→22:00)
[2018-01-20] MEDS: cefTRIAXone 1GM/10ml IVPUSH 10 ML IV SCH (09:27)
[2018-01-20] MEDS: DOCUSATE SOD 100 MG CAP PO SCH (09:27)
[2018-01-20] MEDS: methylPREDNISolone SOD SUCC 40 MG/ML VL IV SCH (09:27)
[2018-01-20] MEDS: CLOPIDOGREL BISULFATE 75 MG TAB PO SCH (09:28)
[2018-01-20] MEDS: cloNIDine HCL 0.1 MG TAB PO SCH ×2 (09:28→21:22)
[2018-01-20] MEDS: GABAPENTIN 300 MG CAP PO SCH ×2 (09:28→21:23)
[2018-01-20] MEDS: PANTOPRAZOLE 40 MG TAB PO SCH (09:29)
[2018-01-20] MEDS: CARVEDILOL 3.125 MG TAB PO SCH ×2 (09:29→21:22)
[2018-01-20] MEDS: ASPirin 81 mg TAB PO SCH (09:29)
[2018-01-20] MEDS: POTASSIUM CHL 10 Meq TABLET PO SCH ×2 (09:30→21:44)
[2018-01-20] MEDS ORDERED: FUROSEMIDE 40 MG/4 ML VIAL IV SCH (10:00)
[2018-01-20] MEDS: AZITHROMYCIN 500MG/ 250ML 250 ML IV SCH (10:01)
[2018-01-20] MEDS: QUEtiapine FUMARATE 100 MG TAB PO SCH (21:23)
[2018-01-20] MEDS: PARoxetine 20 MG TAB PO SCH (21:24)
[2018-01-20] MEDS: ATORVASTATIN 20 MG TAB PO SCH (21:24)
[2018-01-20] MEDS: INSULIN LANTUS (GLARGINE) 1 /0.01ml (100units/ml) SC SCH (21:44)
[2018-01-21] MEDS: ALBUTEROL SULF 2.5 MG/0.5ML(0.5%) NEB SOLN NEB SCH ×2 (01:13→07:38)
[2018-01-21] MEDS: IPRATROPIUM BROM 0.5 MG/2.5ML INH SOL NEB SCH ×3 (01:13→12:00)
[2018-01-21 05:00] VITALS: BP 146/91
[2018-01-21] MEDS: HEPARIN SODIUM (PORCINE) 5000 UNITS/ML 1ML VIAL SC SCH (05:43)
[2018-01-21] MEDS: SODIUM CHLOR 0.9% PF (SALINE LOCK) 10ML VIAL IV SCH (05:47)
[2018-01-21] MEDS: InsuLIN REG 1unit/0.01ml Soln (100units/ml) SC SCH ×2 (06:25→11:30)
[2018-01-21] MEDS: ACCU-CHEK COMFORT CURVE STRIP VI SCH ×2 (06:26→11:30)
[2018-01-21] MEDS ORDERED: INSULIN LANTUS (GLARGINE) 1 /0.01ml (100units/ml) SC SCH (07:00)
[2018-01-21] MEDS: Boost Glucose Control 8 Ounces PO SCH (08:00)
[2018-01-21 08:08] LABS: BUN/Creatinine Ratio 41.7; Calcium 8.1 mg/dL (8.5-10.1); Potassium 5.2 mmol/L (3.5-5.1)
[2018-01-21 09:00] VITALS: BP 143/87
[2018-01-21] MEDS: POTASSIUM CHL 10 Meq TABLET PO SCH (10:00)
[2018-01-21] MEDS ORDERED: predniSONE 20 MG TAB PO SCH (10:00)
[2018-01-21] MEDS: cefTRIAXone 1GM/10ml IVPUSH 10 ML IV SCH (11:07)
[2018-01-21] MEDS: AZITHROMYCIN 500MG/ 250ML 250 ML IV SCH (11:08)
[2018-01-21] MEDS: DOCUSATE SOD 100 MG CAP PO SCH (11:09)
[2018-01-21] MEDS: cloNIDine HCL 0.1 MG TAB PO SCH (11:10)
[2018-01-21] MEDS: ASPirin 81 mg TAB PO SCH (11:11)
[2018-01-21] MEDS: CLOPIDOGREL BISULFATE 75 MG TAB PO SCH (11:12)
[2018-01-21] MEDS: CARVEDILOL 3.125 MG TAB PO SCH (11:12)
[2018-01-21] MEDS: PANTOPRAZOLE 40 MG TAB PO SCH (11:12)
[2018-01-21] MEDS: GABAPENTIN 300 MG CAP PO SCH (11:12)
[2018-01-21] MEDS ORDERED: SODIUM POLYSTYRENE SULF 15GM/60ML SUSP PR ONE (12:30)
[2018-01-21 13:00] VITALS: BP 151/93
[2018-01-21 16:45] VITALS: BP 128/77
== END 2018-01-21 16:30 | disposition home or self-care (01) | DRG 871 ==
LOC: ER 16:00 → EDBD 16:00 → TELE 16:01 → DOU IN ICU 01-13 09:31 → TELE-WESTW 01-20 14:53
PROVIDERS: ADMIT Internal Medicine; ATTEND Internal Medicine
PROC: 5A09357 Assistance with Respiratory Ventilation, Less than 24 Consecutive Hours, Continuous Positive Airway Pressure (ICD-10-PCS; principal; 2018-01-12)
PROC: 5A09457 Assistance with Respiratory Ventilation, 24-96 Consecutive Hours, Continuous Positive Airway Pressure (ICD-10-PCS; 2018-01-13)
PROC: 30233N1 Transfusion of Nonautologous Red Blood Cells into Peripheral Vein, Percutaneous Approach (ICD-10-PCS; 2018-01-16)
PROC: 5A09357 Assistance with Respiratory Ventilation, Less than 24 Consecutive Hours, Continuous Positive Airway Pressure (ICD-10-PCS; 2018-01-17)
PROC: 5A09357 Assistance with Respiratory Ventilation, Less than 24 Consecutive Hours, Continuous Positive Airway Pressure (ICD-10-PCS; 2018-01-18)
PROC: 0W9B3ZZ Drainage of Left Pleural Cavity, Percutaneous Approach (ICD-10-PCS; 2018-01-18)
DX: A41.9 Sepsis, unspecified organism (principal); J18.9 Pneumonia, unspecified organism; J96.01 Acute respiratory failure with hypoxia; I50.43 Acute on chronic combined systolic (congestive) and diastolic (congestive) heart failure; E44.0 Moderate protein-calorie malnutrition; N17.9 Acute kidney failure, unspecified; N18.4 Chronic kidney disease, stage 4 (severe); J44.0 Chronic obstructive pulmonary disease with (acute) lower respiratory infection; I13.0 Hypertensive heart and chronic kidney disease with heart failure and stage 1 through stage 4 chronic kidney disease, or unspecified chronic kidney disease; J45.901 Unspecified asthma with (acute) exacerbation; E83.51 Hypocalcemia; E11.21 Type 2 diabetes mellitus with diabetic nephropathy; E11.40 Type 2 diabetes mellitus with diabetic neuropathy, unspecified; Z68.1 Body mass index [BMI] 19.9 or less, adult; R06.03 Acute respiratory distress; Z99.81 Dependence on supplemental oxygen; D63.1 Anemia in chronic kidney disease; D50.9 Iron deficiency anemia, unspecified; E11.22 Type 2 diabetes mellitus with diabetic chronic kidney disease; F17.210 Nicotine dependence, cigarettes, uncomplicated; F32.9 Major depressive disorder, single episode, unspecified; K21.9 Gastro-esophageal reflux disease without esophagitis; F41.9 Anxiety disorder, unspecified; T38.0X5A Adverse effect of glucocorticoids and synthetic analogues, initial encounter; M54.9 Dorsalgia, unspecified
CPT/HCPCS: 32555; 36415; 36600; 71045; 71250; 72131; 76604; 76942; 80048; 80053; 80061; 81001; 82805; 82962; 83036; 83540; 83550; 83615; 83735; 83880; 83986; 84132; 84443; 84484; 85025; 85610; 85730; 86738; 86850; 86900; 86901; 86920; 87040; 87070; 87081; 87086; 87205; 87278; 89051; 93005; 93306; 94640; 94660; 94667; 94668; 96365; 96372; 96375; 96376; 99291; A4615; J1815; P9047

== ENCOUNTER 2019-06-18 11:42 | Emergency (ER) | payer OTHER ==
[~2019-06-18] VITALS: Ht 177.8 cm; Wt 81.6 kg
[~2019-06-18 11:42] MED LIST: HYDR-3682 PO; HYDR2.5L TOP; IPRA1SOL3 IN; PRED1PAK9 PO
[2019-06-18 13:29] LABS: Basophils # (auto) 0.1 uL; Eosinophils # (auto) 0 uL; Hemoglobin 8.1 g/dL (13.5-17.5); Lymphocytes # (auto) 0.4 uL
[2019-06-18 13:31] LABS: Basophils % (auto) 0.5 % (0.0-2.0); Eosinophils % (auto) 0.3 % (0.0-7.0); Hematocrit 24.2 % (41.0-53.0); Mean Corpuscular Hemoglobin 27.3 pg (28.0-32.0); Mean Corpuscular Hgb Conc. 33.5 g/dL (32.0-36.0); Mean Corpuscular Volume 81.6 fL (80.0-100.0); Monocytes # (auto) 0.6 uL; Monocytes % (auto) 6.1 % (0.0-12.0); Neutrophils # (auto) 9.4 uL; Neutrophils % (auto) 89.1 % (37.0-80.0); Nucleated Red Blood Cells % 0.1 %; Platelet Count (auto) 188 10^3/uL (140-450); Red Blood Cells 2.96 10^6/uL (4.5-5.90); Red Cell Distribution Width 16.6 % (11.8-14.3); White Blood Cell 10.5 10^3/uL (4.4-10.8)
[2019-06-18 13:33] LABS: Albumin 2.8 g/dL (3.4-5.0); Calcium 7.5 mg/dL (8.5-10.1); Magnesium 2.4 mg/dL (1.6-2.6); Potassium 5.1 mmol/L (3.5-5.1)
[2019-06-18 13:35] LABS: INR 1.27 (0.9-1.15); Partial Thromboplastin Time 28.9 sec (23.64-32.05)
[2019-06-18 13:37] LABS: BUN/Creatinine Ratio 18.3; Bilirubin, Total 0.8 mg/dL (0.2-1.0); Total Protein 7.6 g/dL (6.4-8.2)
[2019-06-18] MEDS ORDERED: SODIUM CHLORIDE 0.9% 1,000 ML IVB ONE (14:24)
[2019-06-18] MEDS ORDERED: cefTRIAXone 1GM/50ML D5W 50 ML IV ONE (14:30)
[2019-06-18] MEDS ORDERED: IPRA1SOL3 IN (15:36)
[2019-06-18] MEDS ORDERED: FAM20T GT (15:36)
[2019-06-18] MEDS ORDERED: LEVO500T21 PO (15:36)
[2019-06-18] MEDS ORDERED: METH4PAK PO (15:36)
[2019-06-18] MEDS ORDERED: GUAI600T23 PO (15:36)
[2019-06-18 15:38] VITALS: BP 104/62
[2019-06-18] MEDS ORDERED: IPRATROPIUM BROM 0.5 MG/2.5ML INH SOL NEB ONE (15:45)
[2019-06-18] MEDS ORDERED: ALBUTEROL SULF 2.5 MG/0.5ML(0.5%) NEB SOLN NEB ONE (15:45)
[2019-06-18 16:04] LABS: Urine Bacteria NONE SEEN /hpf (None Seen); Urine Blood Negative /uL (Negative); Urine Specific Gravity 1.014 (1.001-1.035); Urine WBC 1 /hpf (0 - 3)
[2019-06-18] MEDS ORDERED: ASCO500C49 PO (16:22)
[2019-06-18] MEDS ORDERED: FER325T PO (16:22)
== END 2019-06-18 17:28 | disposition home or self-care (01) ==
LOC: ER 11:42 → EDBD 11:42 → ER 17:28
DX: J18.9 Pneumonia, unspecified organism (principal); R42 Dizziness and giddiness; J44.9 Chronic obstructive pulmonary disease, unspecified; N17.9 Acute kidney failure, unspecified; I50.9 Heart failure, unspecified; E11.9 Type 2 diabetes mellitus without complications; K21.9 Gastro-esophageal reflux disease without esophagitis; I25.10 Atherosclerotic heart disease of native coronary artery without angina pectoris; E78.00 Pure hypercholesterolemia, unspecified; Z87.891 Personal history of nicotine dependence
CPT/HCPCS: 36415; 70450; 71045; 80053; 81001; 83605; 83735; 83880; 84484; 85025; 85610; 85730; 87040; 93005; 94640; 94761; 96365; 96366; 99284; J0696; J7030; J7611; J7644

== ENCOUNTER 2019-08-22 19:51 | Emergency (ER) | payer OTHER ==
[~2019-08-22 19:51] MED LIST changes: +ASCO500C49 PO; +FAM20T GT; +FER325T PO; +GUAI600T23 PO; +LEVO500T21 PO; +METH4PAK PO
[2019-08-22] MEDS ORDERED: EPINEPHrine HCL 1 MG/10 ML SYRG IV ONE (19:56)
[2019-08-22] MEDS ORDERED: DEXTROSE (50%) 50ML SYRG IV ONE (19:56)
[2019-08-22] MEDS ORDERED: SODIUM BICARBONATE 8.4% INJ 50ML SYRINGE IV ONE (19:56)
[2019-08-22] MEDS ORDERED: CALCIUM CHLOR(10%) 100MG/ML 10ML SYRINGE IV ONE (19:56)
== END 2019-08-22 20:02 | disposition expired ==
LOC: EDBD 19:51 → ER 19:55
DX: I46.9 Cardiac arrest, cause unspecified (principal); I11.0 Hypertensive heart disease with heart failure; I50.9 Heart failure, unspecified; E11.9 Type 2 diabetes mellitus without complications; J44.9 Chronic obstructive pulmonary disease, unspecified; K21.9 Gastro-esophageal reflux disease without esophagitis; Z87.891 Personal history of nicotine dependence; Z79.899 Other long term (current) drug therapy; Z79.2 Long term (current) use of antibiotics
CPT/HCPCS: 31500; 92950; 99285; J0171; J7042